=== PATIENT | female | born 1990 | race Hispanic/Latino ===

== ENCOUNTER 2018-11-26 09:01 | Emergency (ER) | payer SELFPAY ==
--- NOTE | 2018-11-26 09:23 | ER ---
Nurse's Notes [facility] Name: Kristi Ivory Age: 28 yrs Sex: Female : 1990 Arrival Date: 11/26/2018 Time: 09:04 Bed 5 Private MD: Diagnosis: Tinea corporis Presentation: 11/26 09:04 Presenting complaint: Patient states: i have this rash for a week now, L side of the hj face and back of the neck, celine been using betametasona cream but its not helping;. Transition of care: patient was not received from another setting of care. Onset of symptoms was November 26, 2018. Risk Assessment: Do you want to hurt yourself or someone else? Patient reports no desire to harm self or others. Initial Sepsis Screen: Does the patient meet any 2 criteria? No. Patient's initial sepsis screen is negative. Does the patient have a suspected source of infection? No. Patient's initial sepsis screen is negative. Care prior to arrival: None. 09:04 Method Of Arrival: Ambulatory 09:04 Acuity: JENNIFER 4 hj Triage Assessment: 09:06 General: Appears in no apparent distress. uncomfortable, Behavior is calm, cooperative, hj appropriate for age. Pain: Denies pain. 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 - Social history:: Smoking status: . - Ebola Screening: : Patient denies travel to an Ebola-affected area in the 21 days before illness onset. Screenin:05 Abuse screen: Denies threats or abuse. Nutritional screening: No deficits noted. tw2 Tuberculosis screening: No symptoms or risk factors identified. Fall Risk None identified. Assessment: 09:32 General: Appears in no apparent distress. Cardiovascular: Patient's skin is warm and tw2 dry. Respiratory: Airway is patent Respiratory effort is even, unlabored, Respiratory pattern is regular, symmetrical. Vital Signs: 09:06 BP 136 / 83; Pulse 60; Resp 18; Temp 98.4(TE); Pulse Ox 100% on R/A; Weight 56.7 kg; hj Height 5 ft. 1 in. (154.94 cm); Pain 0/10; 09:06 Body Mass Index 23.62 (56.70 kg, 154.94 cm) ED Course: 09:04 Patient arrived in ED. mr 09:05 Steph Mathews, RN is Primary Nurse. tw2 09:05 Bed in low position. Call light in reach. tw2 09:05 Arm band placed on. tw2 09:06 Triage completed. 09:16 Tristin Perez NP is PHCP. pm1 09:16 Harvey Ram MD is Attending Physician. pm1 09:33 No provider procedures requiring assistance completed. Patient did not have IV access tw2 during this emergency room visit. Administered Medications: No medications were administered Outcome: : Discharge ordered by . pm1 09:33 Discharged to home ambulatory. tw2 09:33 Condition: stable 09:33 Discharge instructions given to patient, Instructed on discharge instructions, follow up and referral plans. medication usage, Demonstrated understanding of instructions, follow-up care, medications, Prescriptions given X 1. 09:34 Patient left the ED. tw2 Signatures: Mel Jasso mr StoryRayshawn, RN RN Tristin Perez NP TRANSFER MAN pm1 Steph Mathews RN RN tw2
--- NOTE | 2018-11-26 09:23 | EDPHYS ---
Physician Documentation [facility] Name: Kristi Ivory Age: 28 yrs Sex: Female : 1990 Arrival Date: 11/26/2018 Time: 09:04 Bed 5 Private MD: ED Physician Harvey Ram HPI: 11/26 09:21 This 28 yrs old Female presents to ER via Ambulatory with complaints of Rash. pm1 09:21 The patient's rash thought to be caused by from mask that she has to wear at work. The pm1 rash is located on the The rash is located on the face and neck. Onset: The symptoms/episode began/occurred 1 week(s) ago. Associated signs and symptoms: Pertinent positives: itching, Pertinent negatives: difficulty breathing, fever, swelling of lips, swelling of throat, swelling of tongue, vomiting, wheezing. Severity of symptoms: in the emergency department the symptoms are worse Pain is currently a 0 / 10. Treatment given at home: OTC lotion/cream steroid lotion/cream. The patient has not experienced similar symptoms in the past. The patient has not recently seen a physician. 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 - Social history:: Smoking status: . - Ebola Screening: : Patient denies travel to an Ebola-affected area in the 21 days before illness onset. ROS: 09:33 Constitutional: Negative for fever, chills, and weight loss, Eyes: Negative for injury, pm1 pain, redness, and discharge, ENT: Negative for injury, pain, and discharge, Neck: Negative for injury, pain, and swelling, Cardiovascular: Negative for chest pain, palpitations, and edema, Respiratory: Negative for shortness of breath, cough, wheezing, and pleuritic chest pain, Abdomen/GI: Negative for abdominal pain, nausea, vomiting, diarrhea, and constipation, Back: Negative for injury and pain, : Negative for injury, bleeding, discharge, and swelling, MS/Extremity: Negative for injury and deformity. 09:33 Skin: Positive for rash, of the neck and face, Negative for rash on scalp. Exam: 09:33 Constitutional: This is a well developed, well nourished patient who is awake, alert, pm1 and in no acute distress. Head/Face: Normocephalic, atraumatic. Eyes: Pupils equal round and reactive to light, extra-ocular motions intact. Lids and lashes normal. Conjunctiva and sclera are non-icteric and not injected. Cornea within normal limits. Periorbital areas with no swelling, redness, or edema. ENT: Nares patent. No nasal discharge, no septal abnormalities noted. Tympanic membranes are normal and external auditory canals are clear. Oropharynx with no redness, swelling, or masses, exudates, or evidence of obstruction, uvula midline. Mucous membranes moist. Neck: Trachea midline, no thyromegaly or masses palpated, and no cervical lymphadenopathy. Supple, full range of motion without nuchal rigidity, or vertebral point tenderness. No Meningismus. Chest/axilla: Normal chest wall appearance and motion. Nontender with no deformity. No lesions are appreciated. Cardiovascular: Regular rate and rhythm with a normal S1 and S2. No gallops, murmurs, or rubs. No pulse deficits. Respiratory: Lungs have equal breath sounds bilaterally, clear to auscultation and percussion. No rales, rhonchi or wheezes noted. No increased work of breathing, no retractions or nasal flaring. Abdomen/GI: Soft, non-tender, with normal bowel sounds. No distension or tympany. No guarding or rebound. No evidence of tenderness throughout. Back: No spinal tenderness. No costovertebral tenderness. Full range of motion. 09:33 MS/ Extremity: Pulses equal, no cyanosis. Neurovascular intact. Full, normal range of motion. 09:33 Skin: Appearance: normal except for affected area, consistent with ringworm, on the left zygomatic area and neck. 09:33 Neuro: Orientation: is normal, Motor: is normal, moves all fours. Vital Signs: 09:06 BP 136 / 83; Pulse 60; Resp 18; Temp 98.4(TE); Pulse Ox 100% on R/A; Weight 56.7 kg; hj Height 5 ft. 1 in. (154.94 cm); Pain 0/10; 09:06 Body Mass Index 23.62 (56.70 kg, 154.94 cm) hj MDM: 09:18 Patient medically screened. pm1 09:21 Data reviewed: vital signs. Data interpreted: Pulse oximetry: on room air is 100 %. pm1 Interpretation: normal. 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 Administered Medications: No medications were administered Disposition: 13:19 Co-signature as Attending Physician, Harvey Ram MD I agree with the assessment and kdr plan of care. Disposition: 11/26/18 09:22 Discharged to Home. Impression: Tinea corporis. - Condition is Fair. - Discharge Instructions: Body Ringworm. - Prescriptions for Lotrisone 1- 0.05 % Topical cream - apply 1 application by TOPICAL route every 12 hours for 14 days; 1 tube. - Medication Reconciliation Form, Thank You Letter, Antibiotic Education, Prescription Opioid Use, Work release form form. - Follow up: Emergency Department; When: As needed; Reason: Worsening of condition. Follow up: Private Physician; When: 2 - 3 days; Reason: Recheck today's complaints, Continuance of care, Re-evaluation by your physician. - Problem is new. - Symptoms have improved. Signatures: Harvey Ram MD MD [facility] Tristin Perez NP PET HOUSE SITTER pm1 Steph Mathews RN RN tw2 Corrections: (The following items were deleted from the chart) 09:34 09:22 11/26/2018 09:22 Discharged to Home. Impression: Tinea corporis. Condition is tw2 Fair. Forms are Medication Reconciliation Form, Thank You Letter, Antibiotic Education, Prescription Opioid Use. Follow up: Emergency Department; When: As needed; Reason: Worsening of condition. Follow up: Private Physician; When: 2 - 3 days; Reason: Recheck today's complaints, Continuance of care, Re-evaluation by your physician. Problem is new. Symptoms have improved. pm1
== END 2018-11-26 09:34 | disposition home or self-care (01) ==
LOC: ER 09:01
DX: B35.4 Tinea corporis (principal)
CPT/HCPCS: 99282

== ENCOUNTER 2018-12-02 13:43 | Emergency (ER) | payer SELFPAY ==
--- NOTE | 2018-12-02 14:27 | EDPHYS ---
Physician Documentation [facility] Name: Kristi Ivory Age: 28 yrs Sex: Female : 1990 Arrival Date: 12/02/2018 Time: 13:45 Bed 12 Private MD: ED Physician Allen Snider HPI: 12/02 16:52 This 28 yrs old Female presents to ER via Ambulatory with complaints of Work snw Release. 16:52 Onset: The symptoms/episode began/occurred suddenly. Associated signs and symptoms: The snw patient has no apparent associated signs or symptoms. Modifying factors: The patient symptoms are alleviated by antifungals. It is unknown whether or not the patient has had similar symptoms in the past. The patient has been recently seen at the [facility] Emergency Department, last week, tx for tinea given. pt requests work excuse to return today. Historical: - Allergies: 13:47 No Known Allergies; hj - Home Meds: 13:47 None [Active]; hj - PMHx: 13:47 None; hj - PSHx: 13:47 None; hj ROS: 16:52 Constitutional: Negative for fever, chills, and weight loss, Eyes: Negative for injury, snw pain, redness, and discharge, ENT: Negative for injury, pain, and discharge, Neck: Negative for injury, pain, and swelling, Cardiovascular: Negative for chest pain, palpitations, and edema, Respiratory: Negative for shortness of breath, cough, wheezing, and pleuritic chest pain, Abdomen/GI: Negative for abdominal pain, nausea, vomiting, diarrhea, and constipation, Back: Negative for injury and pain, : Negative for injury, bleeding, discharge, and swelling, MS/Extremity: Negative for injury and deformity, Skin: Negative for injury, rash, and discoloration, Neuro: Negative for headache, weakness, numbness, tingling, and seizure. Exam: 16:51 Constitutional: This is a well developed, well nourished patient who is awake, alert, snw and in no acute distress. Head/Face: Normocephalic, atraumatic. Eyes: Pupils equal round and reactive to light, extra-ocular motions intact. Lids and lashes normal. Conjunctiva and sclera are non-icteric and not injected. Cornea within normal limits. Periorbital areas with no swelling, redness, or edema. ENT: Nares patent. No nasal discharge, no septal abnormalities noted. Tympanic membranes are normal and external auditory canals are clear. Oropharynx with no redness, swelling, or masses, exudates, or evidence of obstruction, uvula midline. Mucous membranes moist. Chest/axilla: Normal chest wall appearance and motion. Nontender with no deformity. No lesions are appreciated. Cardiovascular: Regular rate and rhythm with a normal S1 and S2. No gallops, murmurs, or rubs. Normal PMI, no JVD. No pulse deficits. Respiratory: Lungs have equal breath sounds bilaterally, clear to auscultation and percussion. No rales, rhonchi or wheezes noted. No increased work of breathing, no retractions or nasal flaring. Abdomen/GI: Soft, non-tender, with normal bowel sounds. No distension or tympany. No guarding or rebound. No evidence of tenderness throughout. Back: No spinal tenderness. No costovertebral tenderness. Full range of motion. Skin: Warm, dry with normal turgor. Normal color with no rashes, no lesions, and no evidence of cellulitis. MS/ Extremity: Pulses equal, no cyanosis. Neurovascular intact. Full, normal range of motion. Neuro: Awake and alert, GCS 15, oriented to person, place, time, and situation. Cranial nerves II-XII grossly intact. Motor strength 5/5 in all extremities. Sensory grossly intact. Cerebellar exam normal. Normal gait. 16:51 Neck: External neck: rash, that is mild, of the lower cervical area, faint tinea corporis. Vital Signs: 13:47 BP 114 / 58; Pulse 61; Resp 18; Temp 98.2(TE); Pulse Ox 100% on R/A; Weight 56.7 kg; hj Height 5 ft. 1 in. (154.94 cm); Pain 0/10; 13:47 Body Mass Index 23.62 (56.70 kg, 154.94 cm) hj MDM: 14:18 Patient medically screened. snw 16:53 Data reviewed: vital signs, nurses notes. Data interpreted: Pulse oximetry: on room air snw is 100 %. Interpretation: normal. Counseling: I had a detailed discussion with the patient and/or guardian regarding: the historical points, exam findings, and any diagnostic results supporting the discharge/admit diagnosis, the need for outpatient follow up, to return to the emergency department if symptoms worsen or persist or if there are any questions or concerns that arise at home. Special discussion: Based on the history and exam findings, there is no indication for further emergent testing or inpatient evaluation. I discussed with the patient/guardian the need to see the primary care provider for further evaluation of the symptoms. Administered Medications: No medications were administered Disposition: 16:54 Co-signature as Attending Physician, Allen Snider MD. rn Disposition: 12/02/18 14:26 Discharged to Home. Impression: Encounter for screening, unspecified. - Condition is Stable. - Work release form, Medication Reconciliation Form, Thank You Letter, Antibiotic Education, Prescription Opioid Use form. - Follow up: Private Physician; When: 2 - 3 days; Reason: Recheck today's complaints, Continuance of care, Re-evaluation by your physician. Follow up: Emergency Department; When: As needed; Reason: Worsening of condition. Signatures: Татьяна Carrera, STRING LASTER-C STRING LASTER-Csnw Allen Snider MD MD rn Joaquin, Henry, RN RN hj Corrections: (The following items were deleted from the chart) 14:46 14:26 12/02/2018 14:26 Discharged to Home. Impression: Encounter for screening, hj unspecified. Condition is Stable. Forms are Medication Reconciliation Form, Thank You Letter, Antibiotic Education, Prescription Opioid Use. Follow up: Private Physician; When: 2 - 3 days; Reason: Recheck today's complaints, Continuance of care, Re-evaluation by your physician. Follow up: Emergency Department; When: As needed; Reason: Worsening of condition. snw
--- NOTE | 2018-12-02 14:27 | ER ---
Nurse's Notes [facility] Name: Kristi Ivory Age: 28 yrs Sex: Female : 1990 Arrival Date: 12/02/2018 Time: 13:45 Bed 12 Private MD: Diagnosis: Encounter for screening, unspecified Presentation: 12/02 13:46 Presenting complaint: Patient states: i had ring worms on my neck, its all gone now, i hj just need a work note;. Transition of care: patient was not received from another setting of care. Onset of symptoms was December 02, 2018. Risk Assessment: Do you want to hurt yourself or someone else? Patient reports no desire to harm self or others. Initial Sepsis Screen: Does the patient meet any 2 criteria? No. Patient's initial sepsis screen is negative. Does the patient have a suspected source of infection? No. Patient's initial sepsis screen is negative. Care prior to arrival: None. 13:46 Method Of Arrival: Ambulatory 13:46 Acuity: JENNIFER 5 hj Historical: - Allergies: 13:47 No Known Allergies; hj - Home Meds: 13:47 None [Active]; hj - PMHx: 13:47 None; hj - PSHx: 13:47 None; Vital Signs: 13:47 BP 114 / 58; Pulse 61; Resp 18; Temp 98.2(TE); Pulse Ox 100% on R/A; Weight 56.7 kg; hj Height 5 ft. 1 in. (154.94 cm); Pain 0/10; 13:47 Body Mass Index 23.62 (56.70 kg, 154.94 cm) ED Course: 13:45 Patient arrived in ED. rg4 13:47 Triage completed. hj 13:47 Arm band placed on right wrist. hj 14:11 Татьяна Carrera FNP-[facility] snw 14:11 Allen Snider MD is Attending Physician. snw Administered Medications: No medications were administered Outcome: 14:26 Discharge ordered by . snw 14:46 Patient left the ED. Signatures: Татьяна Carrera FNP-C SENIOR ACCOUNTING SPECIALIST-Csnw Rayshawn Story RN RN Meche Harper rg4 Corrections: (The following items were deleted from the chart) 13:49 13:46 Presenting complaint: Patient states: i had ring worms on my neck, i just need a hj work note; hj
== END 2018-12-02 14:46 | disposition home or self-care (01) ==
LOC: ER 13:43
DX: Z02.89 Encounter for other administrative examinations (principal)
CPT/HCPCS: 99281